=== PATIENT | male | born 1975 | race African-American/Black ===

== ENCOUNTER 2022-12-02 01:26 | Emergency (ER) | payer OTHER ==
[~2022-12-02] VITALS: Ht 175.3 cm; Wt 80.0 kg
[2022-12-02] MEDS ORDERED: LIDOCAINE HCL/EPINEPHRINE 1%-EPI 1:100,000 20 ML VIAL INFIL ONE (02:00)
[2022-12-02] MEDS ORDERED: SODIUM CHLORIDE 0.9% 1,000 ML IV ONE (02:00)
[2022-12-02] MEDS ORDERED: TETANUS, DIPHTHERIA, PERTUSSIS VAC/PF 0.5ML (>10YR OLD) IM ONE (02:00)
[2022-12-02] MEDS ORDERED: BACITRACIN ZINC OINT UDPKT TOP ONE (02:00)
[2022-12-02] MEDS ORDERED: CEFAZOLIN 1000MG PREMIX 50 ML IV ONE (02:00)
[2022-12-02] MEDS ORDERED: ONDANSETRON HCL 4MG/2ML INJ IV ONE (02:00)
[2022-12-02] MEDS ORDERED: MORPHINE SULFATE 4 MG/ML CPJ (NOT FOR IM USE) IV ONE (02:00)
[2022-12-02] MEDS ORDERED: LIDOCAINE HCL/EPINEPHRINE 1%-EPI 1:100,000 20 ML VIAL INFIL NR (02:15)
[2022-12-02 02:21] VITALS: BP 160/90
[2022-12-02] MEDS ORDERED: CEPH500T MT (04:03)
[2022-12-02] MEDS ORDERED: IBUP-2029 MT (04:03)
== END 2022-12-02 05:07 | disposition home or self-care (01) ==
LOC: ER 01:26
DX: S51.812A Laceration without foreign body of left forearm, initial encounter (principal); S01.311A Laceration without foreign body of right ear, initial encounter; Y04.0XXA Assault by unarmed brawl or fight, initial encounter; Y93.89 Activity, other specified; Y92.89 Other specified places as the place of occurrence of the external cause; Y99.8 Other external cause status
CPT/HCPCS: 12002; 73090; 90471; 90715; 96365; 96375; 99291; J0690; J2270; J2405; J3490; J7030; Z7610

== ENCOUNTER 2022-12-18 16:44 | Emergency (ER) | payer OTHER ==
[~2022-12-18] VITALS: Ht 167.6 cm; Wt 77.2 kg
[~2022-12-18 16:44] MED LIST: CEPH500T MT; IBUP-2029 MT
[2022-12-18 17:31] VITALS: BP 161/117
== END 2022-12-18 22:00 | disposition home or self-care (01) ==
LOC: ER 16:44
DX: S51.812D Laceration without foreign body of left forearm, subsequent encounter (principal); X58.XXXD Exposure to other specified factors, subsequent encounter
CPT/HCPCS: 99281; Z7610

== ENCOUNTER 2023-11-03 07:48 | Emergency (ER) | payer MEDICAID, OTHER ==
[~2023-11-03] VITALS: Ht 172.7 cm; Wt 91.0 kg
[2023-11-03 08:09] VITALS: O2SAT 99
[2023-11-03] MEDS: FLUORESCEIN SODIUM 1MG/STRIP RIGHTEYE ONE (09:40)
[2023-11-03] MEDS: TETRACAINE 0.5% OPHTH DROPS 4ML RIGHTEYE ONE (09:41)
[2023-11-03] MEDS ORDERED: OCUFLX RIGHTEYE (10:23)
[2023-11-03 10:44] VITALS: BP 150/90; PULSE 91; RESP 16; TEMP 98.1
== END 2023-11-03 10:44 | disposition home or self-care (01) ==
LOC: ER 07:48
DX: S05.01XA Injury of conjunctiva and corneal abrasion without foreign body, right eye, initial encounter (principal); W45.8XXA Other foreign body or object entering through skin, initial encounter; Y93.89 Activity, other specified; Y92.89 Other specified places as the place of occurrence of the external cause; Y99.8 Other external cause status
CPT/HCPCS: 99283